=== PATIENT | male | born 1940 ===

== ENCOUNTER 2017-06-20 06:43 | Day surgery (SDC) | payer MEDICARE ==
[2017-06-20 07:12] LABS: BASO # 0.02 K/mm3 (0.0-2.0); BASO % 0.3 % (0.0-3.0); EOS # 0.3 (0.0-0.7); EOS % 5.4 % (1.5-5.0); GRAN # 2.7 (1.4-6.5); GRAN % 43.3 % (50.0-68.0); HEMATOCRIT 41.2 % (42.0-52.0); LYMPH # 2.7 (1.2-3.4); LYMPH % 42.7 % (22.0-35.0); MEAN CELL VOLUME 90.4 fl (80.0-105.0); MEAN CORPUSCULAR HEMOGLOBIN 30.9 pg (25.0-35.0); MEAN CORPUSCULAR HGB CONC 34.2 g/dl (31.0-37.0); MEAN PLATELET VOLUME 11.2 fl (7.0-11.0); MONO # 0.5 (0.1-0.6); MONO % 8.3 % (1.0-6.0); WHITE BLOOD COUNT 6.3 10^3/ul (4.5-11.0)
[2017-06-20 07:23] LABS: INR 0.99 (0.93-1.08); PARTIAL THROMBOPLASTIN TIME 29.2 Seconds (23.7-30.8)
[2017-06-20 07:26] LABS: BLOOD UREA NITROGEN 20 mg/dL (7-21); CALCIUM 9.1 mg/dL (8.4-10.5); CARBON DIOXIDE 28 mmol/L (21-33); CHLORIDE 104 mmol/L (98-107); CHOLESTEROL 184 mg/dL (130-200); GFR AFRICAN-AMERICAN > 60; GLUCOSE,RANDOM 105 mg/dL (70-110); POTASSIUM 3.9 mmol/L (3.6-5.0); SODIUM 144 mmol/L (132-148)
[2017-06-20 08:38] VITALS: BMI 28.3
[2017-06-20] MEDS ORDERED: Lidocaine 2% Inj (20ml) ONE (09:19)
[2017-06-20] MEDS ORDERED: Midazolam 2 MG/2 ML VIAL ONE (09:19)
[2017-06-20] MEDS ORDERED: Nitroglycerin 50mg in D5W 50 MG/250 ML BOTTLE IV ONE (09:20)
[2017-06-20] MEDS ORDERED: Iodixanol 320 MG/ML 200 ML BOTTLE IV ONE (09:20)
[2017-06-20] MEDS ORDERED: Iodixanol 320 MG/ML 100 ML BOTTLE IV ONE (09:20)
[2017-06-20] MEDS ORDERED: DiphenhydrAMINE 50 mg/ml Inj ONE (09:47)
[2017-06-20] MEDS ORDERED: Adenosine 90 mg/30mL IV ONE (10:32)
[2017-06-20] MEDS ORDERED: Iohexol 350mgl/ml 50 ML ONE (10:39)
--- NOTE | 2017-06-20 12:29 | CARD ---
APPROVED REPORT EKG Measurement Heart [id number] CO [id number] <Conclusion> Normal sinus rhythm Right bundle branch block Abnormal ECG
[2017-06-20] MEDS ORDERED: Oxycodone/Acetaminophen 5/325 mg Tab PO PRN (12:40)
[2017-06-20 14:27] LABS: BASO # 0.03 K/mm3 (0.0-2.0); BASO % 0.6 % (0.0-3.0); EOS # 0.2 (0.0-0.7); EOS % 4.8 % (1.5-5.0); GRAN # 1.98 (1.4-6.5); GRAN % 41.6 % (50.0-68.0); HEMATOCRIT 38.8 % (42.0-52.0); LYMPH # 2.2 (1.2-3.4); LYMPH % 45.7 % (22.0-35.0); MEAN CORPUSCULAR HEMOGLOBIN 30.6 pg (25.0-35.0); MONO # 0.4 (0.1-0.6); MONO % 7.3 % (1.0-6.0); RED CELL DISTRIBUTION WIDTH 12.9 % (11.5-14.5); WHITE BLOOD COUNT 4.8 10^3/ul (4.5-11.0)
[2017-06-20 14:35] LABS: BLOOD UREA NITROGEN 16 mg/dL (7-21); CALCIUM 8.4 mg/dL (8.4-10.5); CARBON DIOXIDE 28 mmol/L (21-33); CHLORIDE 104 mmol/L (98-107); GFR AFRICAN-AMERICAN > 60; GLUCOSE,RANDOM 91 mg/dL (70-110); POTASSIUM 3.7 mmol/L (3.6-5.0); SODIUM 142 mmol/L (132-148)
[2017-06-20 14:46] LABS: TROPONIN I < 0.01 ng/mL
[2017-06-20] MEDS ORDERED: Bacitracin 500 Units/gm Oint Foilpak UD ONE (15:27)
[2017-06-20 18:04] VITALS: RESP 18
[2017-06-20 18:27] VITALS: BP 160/100; PULSE 62; TEMP 98.2; O2SAT 95
--- NOTE | 2017-06-20 19:08 | CP.PCM.PN ---
Subjective - Date & Time of Evaluation Date of Evaluation: 06/20/17 Time of Evaluation: 19:06 - Subjective Subjective: Patient was seen at bedside. His blood pressure was 186/106. Complains of little headache. Has no other complaints. Denies dizziness,chest pain. Patient is S/P cardiac cath,drug eluting stents in RCA. Has PMH of HTN,CAD,BPH,HLD,ASHD,hypothyroidism, hypertensive heart disease,MVR, OA,SVT,overweigth. Objective - Vital Signs/Intake and Output Vital Signs (last 24 hours): Temp Pulse Resp BP Pulse Ox 98.2 F 62 18 160/100 H 95 06/20/17 18:27 06/20/17 18:27 06/20/17 18:27 06/20/17 18:27 06/20/17 18:27 - Medications Medications: Current Medications Losartan Potassium (Cozaar) 100 mg PO DAILY KULWINDER Last Admin: 06/20/17 13:29 Dose: 100 mg Oxycodone/Acetaminophen (Percocet 5/325 Mg Tab) 1 tab PO Q4H PRN PRN Reason: Pain, moderate (4-7) Stop: 06/23/17 12:41 - Labs Labs: 06/20/17 14:22 06/20/17 14:22 PT 10.7 Seconds (9.9-11.8) 06/20/17 06:55 INR 0.99 (0.93-1.08) 06/20/17 06:55 APTT 29.2 Seconds (23.7-30.8) 06/20/17 06:55 - Constitutional Appears: Well, No Acute Distress - Head Exam Head Exam: ATRAUMATIC, NORMAL INSPECTION, NORMOCEPHALIC - Eye Exam Eye Exam: Normal appearance - ENT Exam ENT Exam: Normal External Ear Exam - Neck Exam Neck Exam: Normal Inspection - Respiratory Exam Respiratory Exam: NORMAL BREATHING PATTERN - Cardiovascular Exam Cardiovascular Exam: absent: JVD - GI/Abdominal Exam GI & Abdominal Exam: Distended - Rectal Exam Rectal Exam: Deferred - Exam Exam: NORMAL INSPECTION Additional comments: Deferred. - Extremities Exam Extremities Exam: Normal Inspection - Back Exam Back Exam: NORMAL INSPECTION - Neurological Exam Neurological Exam: Alert, Oriented x3 - Psychiatric Exam Psychiatric exam: Normal Affect, Normal Mood - Skin Skin Exam: Normal Color Assessment and Plan - Assessment and Plan (Free Text) Assessment: Elevated blood pressure reading. Headache. HTN. CAD. S/P cardiac cath,stent placement in RCA. OA. SVT. Hypothyroidism. Overweight. Plan: Clonidine 0.2 mg PO stat. Patient has beed discharged. If blood pressure comes down we will let patient go or will call .
--- NOTE | 2017-06-21 00:31 | CARDCATH ---
PROCEDURE DATE: 06/20/2017 INDICATIONS: Mr. Ruiz is a 77-year-old male with past medical history significant for hypertension, diabetes mellitus, dyslipidemia, who was referred [place] for evaluation of cardiac catheterization. The patient had undergone a stress test and was not able to achieve maximal workload. His functional capacity was significantly reduced. He was having ongoing episode of chest pain that accompanied with shortness of breath for which he was brought to the cardiac [facility] for evaluation and treatment of CAD and new-onset congestive heart failure. PROCEDURE PERFORMED: 1) Complete heart catheterization with selective left and right coronary angiogram 2) left ventriculogram 3) right heart catheterization with cardiac output and hemodynamics. 4) FFR evaluation of left anterior descending artery and left circumflex coronary artery, 5) PTCAand stenting of RV branch of the RCA with a 2.25 x 30 mm Resolute drug-eluting stent and mid RCA with a 2.5 x 26 mm Resolute drug-eluting stent. 6) A 6-Macedonian right radial arterial access, 6-Macedonian right femoral arterial access, 7-Macedonian right femoral venous access. TECHNIQUES OF PROCEDURE: After obtaining informed consent, the patient was brought to the cardiac cath suite in postabsorptive nonsedated state. The patient was prepped and draped in the usual sterile fashion. Lidocaine 2% was used for infiltration of anesthesia. Using modified Seldinger technique, a 6-Macedonian sheath was introduced into the right radial artery. Subsequently, over a J-wire, a JR core catheter was negotiated through a tortuous subclavian. Selective angiograms of the right coronary artery was performed. Subsequently, JR4 was exchanged to a JL4 and subsequently a JL4.5. Selective angiogram of the left coronary system was obtained. At this time, coronary anatomies were defined and there were significant disease noted. Because of the tortuosity of the right subclavian, advancement of the catheter was difficult, therefore procedure was subsequently resorted to a femoral approach. At this time, a 6-Macedonian right femoral arterial access and 7-Macedonian right femoral venous access were obtained. Right heart catheterization was subsequently done with pulmonary capillary wedge catheter with the balloon inflated, the [place] catheter was advanced serially through the IVC into the through RA, RV, PA, and pulmonary capillary wedge position. Hemodynamics were obtained. Subsequently cardiac output was obtained using the thermodilution method. HEMODYNAMICS: Right atrial pressure 15/2/0. Right ventricular pressure 35/4/12. Pulmonary artery pressure 35/8/21. Pulmonary capillary wedge pressure 16/2/10. Subsequently, over a J-wire, EBU3.5 guide was used to engage the left coronary system. FFR of the left anterior descending artery and OM2 was obtained. ANGIOGRAPHIC FINDINGS: Left main, large sized vessel, bifurcates into left circumflex and left anterior descending artery. Left circumflex coronary artery is ectatic and gives off the 2 OM branches and the left PDA. The [place] circumflex was severely ectatic with moderate lesion at the origin of the posterior descending artery, approximately 50% to 60% stenosis. Left anterior descending artery comes off the left main. A large sized vessel gives off the medium sized diagonal branches in the middle of the left anterior descending artery, had a moderate sized 65% to 70% angiographic stenosis. Right coronary artery bifurcates into 2 branches supplying the artery and the [place] RCA which was right ventricular free wall. The RV branch had a 99% stenosis, the [place] RCA mid had an 85% stenosis. TECHNIQUES AND INTERVENTION: After reviewing the above angiographic findings, left anterior descending artery had an FFR which showed the number was 0.87 which was physiologically nonsignificant. Subsequently, the FFR of the OM2 was done which was 0.97 and physiologically nonsignificant. At this time, we decided to intervene the RV branches and mid RCA branch because of severely ectatic disease. The patient would not tolerate if he were to sustain an PR involving the RV branch. Over AR1 guiding catheter, because of the anterior take of the right coronary artery, a [place] wire was used to engage the RV branch and P[place]ater wire was used to engage the [place] RCA. Balloon angioplasty of the RV branch of the RCA was done with a 2.0 balloon and subsequently no angioplasty was done of the [place] RCA. At this time, the [place] RCA was stented with a 2.5 x 26 mm Resolute drug-eluting stent and [place] RV branch was stented with a 2.25 x 30 mm Resolute drug-eluting stent. While the angiograms done showed degeneration down to 0% GABRIELLE-3 flow. IMPRESSION: Ectatic [place] left circumflex disease, moderate left anterior descending and left circumflex lesions, physiologically nonsignificant by FFR, successful PTCA and stenting of the RV branch and the RCA [place] vessels. Mild left ventricular systolic dysfunction. RECOMMENDATIONS: The patient is to be kept on dual antiplatelet therapy for 1 year. We will add Ranexa because of the ectatic circumflex artery and recurrent chest pains. The patient is to follow up with Dr. Nimesh Keene in 1 to [address] weeks' time. Thank you Dr. Keene for letting me participate in the care of your patient. Gagan Maciel MD MTDD
== END 2017-06-20 20:50 | disposition home or self-care (01) ==
LOC: CATH 06:43 → 2RSO 12:00 → CATH 20:50
PROVIDERS: ATTEND Internal Medicine Interventional Cardiology
DX: I25.10 Atherosclerotic heart disease of native coronary artery without angina pectoris (principal); I11.9 Hypertensive heart disease without heart failure; E78.5 Hyperlipidemia, unspecified; I47.1 Supraventricular tachycardia; E03.9 Hypothyroidism, unspecified; E66.3 Overweight; E11.9 Type 2 diabetes mellitus without complications; R51 Headache; N40.0 Benign prostatic hyperplasia without lower urinary tract symptoms

== ENCOUNTER 2018-11-27 13:45 | Day surgery (SDC) | payer OTHER, MEDICARE ==
[2018-11-25 23:12] VITALS: BMI 30.5
[2018-11-27] MEDS ORDERED: Sodium Chloride 0.45% 1,000 ML IV SCH ×2 (16:30→17:22)
[2018-11-27] MEDS ORDERED: Iodixanol 320 MG/ML 200 ML BOTTLE IV ONE (16:32)
[2018-11-27] MEDS ORDERED: Iohexol 350mgl/ml 50 ML ONE (16:32)
[2018-11-27] MEDS ORDERED: Iodixanol 320 MG/ML 100 ML BOTTLE IV ONE (16:32)
[2018-11-27] MEDS ORDERED: Nitroglycerin 50mg in D5W 50 MG/250 ML BOTTLE IV ONE (16:34)
[2018-11-27] MEDS ORDERED: Adenosine 90 mg/30mL IV ONE ×2 (16:39→17:18)
[2018-11-27] MEDS ORDERED: Lidocaine 2% Inj (20ml) ONE (16:47)
[2018-11-27] MEDS ORDERED: Midazolam 2 MG/2 ML VIAL ONE (16:47)
[2018-11-27 21:02] VITALS: TEMP 97.6
--- NOTE | 2018-11-27 23:18 | CARDCATH ---
PROCEDURE DATE: 11/27/2018 INDICATIONS: Mr. Moiz Ruiz is a 78-year-old male with a history of CAD, status post stenting of RCA who was presented to [facility] with complaining of dyspnea on exertion and significant episodes of premature ventricular contractions (PVCs) along with intermittent right bundle and left bundle-branch block. The patient had known prior CAD and was planned for potential FFR guided PCI of LAD and therefore was brought for further evaluation of his underlying CAD. PROCEDURES PERFORMED: Left heart catheterization with selective left and right coronary angiogram, left ventriculogram, FFR evaluation of obtuse marginal branch, 6-Arabic right femoral artery access, and Mynx closure device for hemostasis. ANGIOGRAPHIC FINDINGS: Left main is large sized vessel, bifurcates into left anterior descending, left circumflex coronary artery. Left circumflex is an ectatic vessel, gives off obtuse marginal branch, which has distal 65% stenosis, left dominant circulation. Left PDA had a mid proximal 65% stenosis. LAD is large sized vessel proximal and is ectatic, distal lumen segment has 65% stenosis with GABRIELLE-2 flow noted. Subsequently, FFR of the obtuse marginal was done which was physiologically significant at 0.36 but subsequently after giving intracoronary nitroglycerin, the lesion is essentially resolved. IMPRESSION: Nonobstructive coronary artery disease, severe endothelial dysfunction with vasospastic disease, ectatic coronary artery disease. RECOMMENDATIONS: Keep the patient on dual antiplatelet therapy. Keep the patient on beta blockers, calcium channel blockers, aggressive medical management, risk factor modification. Continue the patient on statins, nitrates, beta blockers and calcium channel blockers. The patient can be discharged home in six hours and follow up with Dr. Kitchen. Thank you Dr. Kitchen for letting me to participate in the care of your patient. The patient is to be transferred back to [place] . Gagan Maciel MD
[2018-11-27 23:21] VITALS: BP 143/96; PULSE 69; RESP 16; O2SAT 96
== END 2018-11-27 23:10 | disposition short-term general hospital (02) ==
LOC: CATH 13:45 → CCU 17:51 → CATH 23:10
PROVIDERS: ATTEND Internal Medicine Interventional Cardiology
DX: I25.10 Atherosclerotic heart disease of native coronary artery without angina pectoris (principal); I45.2 Bifascicular block; I49.3 Ventricular premature depolarization; Z95.5 Presence of coronary angioplasty implant and graft
CPT/HCPCS: 85175; 92978; 93458; 99152; 99153; C1760; C1769 ×2; C1887; C2629; J0153; J1644 ×2; J2250; J3010; J7030; Q9966; Q9967

== ENCOUNTER 2019-03-13 18:05 | Outpatient (CLI) | payer MEDICARE | END 2019-03-13 18:06 | disposition home or self-care (01) | LOC: CARDIO 18:05 ==